=== PATIENT | female | born 1985 | race Caucasian/White ===

== ENCOUNTER 2018-12-05 13:21 | Emergency (ER) | payer MEDICAID ==
[~2018-12-05] VITALS: Ht 172.7 cm; Wt 58.5 kg
[2018-12-05 13:36] VITALS: BP 116/61; PULSE 78; RESP 18; Ht 172.7 cm; Wt 58.5 kg
[2018-12-05] MEDS ORDERED: SOD CHLORIDE 0.9% 500 ML IV STA (14:04)
[2018-12-05] MEDS ORDERED: KETOROLAC 15 MG INJ IV STA (14:04)
--- NOTE | 2018-12-05 14:07 | ERD ---
ER Documentation Chief Complaint Chief Complaint lower abd pain since 0930 am with nausea HPI 33-year-old female, previously healthy, presents to the emergency department, complaining of acute onset of severe lower abdominal pain, radiating to bilateral extremities, the pain lasted approximately 20 minutes and since then has significantly improved. The patient also reports nausea but denies dysuria, no fever or chills, no history of previous episodes. Currently the pain is 5/10. ROS All systems reviewed and are negative except as per history of present illness. Medications Home Meds Active Scripts Acetaminophen* (Tylenol*) 325 Mg Tablet, 2 TAB PO Q6 PRN for PAIN AND OR ELEVATED TEMP, #20 TAB Prov:DEBRA BROUSSARD MD 12/05/18 Ibuprofen* (Motrin*) 400 Mg Tab, 400 MG PO Q6H PRN for PAIN AND OR ELEVATED TEMP, #20 TAB Prov:DEBRA BROUSSARD MD 12/05/18 Allergies Allergies: Coded Allergies: No Known Allergy (Unverified , 12/05/18) FmHx Family History: No diabetes, No coronary disease Physical Exam Vitals Vital Signs Date Temp Pulse Resp B/P (MAP) Pulse Ox O2 O2 Flow FiO2 Time Delivery Rate 12/05/18 97.8 78 18 116/61 99 13:36 (79) Physical Exam Const: No acute distress Head: Atraumatic Eyes: Normal Conjunctiva ENT: Normal External Ears, Nose and Mouth. Neck: Full range of motion. No meningismus. Resp: Clear to auscultation bilaterally Cardio: Regular rate and rhythm, no murmurs Abd: Soft, non tender, non distended. Normal bowel sounds Skin: No petechiae or rashes Back: No midline or flank tenderness Ext: No cyanosis, or edema Neur: Awake and alert Psych: Normal Mood and Affect Result Diagram: 12/05/18 1419 12/05/18 1419 Results 24 hrs Laboratory Tests Test 12/05/18 14:19 12/05/18 14:24 White Blood Count 11.0 10^3/ul Red Blood Count 5.35 10^6/ul Hemoglobin 15.5 g/dl Hematocrit 47.2 % Mean Corpuscular Volume 88.2 fl Mean Corpuscular Hemoglobin 29.0 pg Mean Corpuscular Hemoglobin Concent 32.8 g/dl Red Cell Distribution Width 12.5 % Platelet Count 257 10^3/UL Mean Platelet Volume 11.2 fl Immature Granulocytes % 0.500 % Neutrophils % 72.8 % Lymphocytes % 20.9 % Monocytes % 4.8 % Eosinophils % 0.5 % Basophils % 0.5 % Nucleated Red Blood Cells % 0.0 /100WBC Immature Granulocytes # 0.060 10^3/ul Neutrophils # 8.0 10^3/ul Lymphocytes # 2.3 10^3/ul Monocytes # 0.5 10^3/ul Eosinophils # 0.1 10^3/ul Basophils # 0.1 10^3/ul Nucleated Red Blood Cells # 0.0 10^3/ul Urine Color YELLOW Urine Clarity SLIGHTLY CLOUDY Urine pH 5.0 Urine Specific Edwards 1.011 Urine Ketones NEGATIVE mg/dL Urine Nitrite NEGATIVE mg/dL Urine Bilirubin NEGATIVE mg/dL Urine Urobilinogen NEGATIVE mg/dL Urine Leukocyte Esterase NEGATIVE Fantasma/ul Urine Microscopic RBC 0 /HPF Urine Microscopic WBC 1 /HPF Urine Squamous Epithelial Cells FEW /HPF Urine Bacteria FEW /HPF Urine Mucus FEW /HPF Urine Hemoglobin NEGATIVE mg/dL Urine Glucose NEGATIVE mg/dL Urine Total Protein NEGATIVE mg/dl Sodium Level 142 mmol/L Potassium Level 4.3 mmol/L Chloride Level 104 mmol/L Carbon Dioxide Level 24 mmol/L Anion Gap 14 Blood Urea Nitrogen 17 mg/dl Creatinine 0.57 mg/dl Est Glomerular Filtrat Rate mL/min > 60 mL/min Glucose Level 90 mg/dl Calcium Level 10.0 mg/dl Total Bilirubin 0.5 mg/dl Direct Bilirubin 0.00 mg/dl Indirect Bilirubin 0.5 mg/dl Aspartate Amino Transf (AST/SGOT) 24 IU/L Alanine Aminotransferase (ALT/SGPT) 25 IU/L Alkaline Phosphatase 65 IU/L Total Protein 9.2 g/dl Albumin 5.1 g/dl Globulin 4.10 g/dl Albumin/Globulin Ratio 1.24 Lipase 111 U/L Serum HCG, Qualitative NEGATIVE POC Beta HCG, Qualitative NEGATIVE Current Medications Medications Dose Sig/Guillermo Start Time Status Last (Trade) Ordered Route PRN Stop Time Admin Dose Reason Admin Sodium 500 ml @ Q1H STAT 12/05/18 DC 12/05/18 Chloride 500 mls/hr IV 14:04 14:32 12/05/18 15:03 Ketorolac 15 mg ONCE STAT 12/05/18 DC 12/05/18 Tromethamine IV 14:04 14:32 (Toradol) 12/05/18 14:24 Patient: PHIL HERRERA : 1985 Age: 33 Sex: F [id number] DOS: 12/05/18 1404 Ordering MD: DEBRA BROUSSARD MD Location: [facility] [place] Room/Bed: PROCEDURE: CT abdomen and pelvis without contrast. CLINICAL INDICATION: Abdominal pain. TECHNIQUE: CT scan of the abdomen and pelvis without contrast was performed on a multi-slice CT scanner . Sagittal and coronal reformatted images were obtained from the axial source images. One or more of the following dose reduction techniques were used: - Automated exposure control. - Adjustment of the mA and/or kV according to patient size. - Use of iterative reconstruction technique. DICOM images are available DLP 349.16 mGycm. CTDIvol 6.4 mGy COMPARISON: 12/05/2018 FINDINGS: Fine detail of the soft tissues is limited secondary to the lack of IV contrast. Evaluation for enhancing lesions cannot be performed. Lower thorax:The lung bases are clear. Liver: There is uniform density of the liver with no gross focal lesion. Biliary: The gallbladder is unremarkable without surrounding inflammation. No biliary dilatation. Pancreas: Homogeneous density of the pancreas without visible focal lesion or cystic abnormality. There is no pancreatic ductal dilatation. Spleen: Unremarkable without enlargement or focal lesion. Adrenal Glands: The adrenal glands are within normal limits without mass. Urinary: The kidneys are symmetric in size bilaterally. There is a nonobstructing left upper pole 2 mm renal stone. No right-sided renal calculi are present. There are no visible ureteral stones. Portions of the distal ureters are obscured secondary to adjacent structures. There is no hydronephrosis. Mild bladder wall thickening is present. Gastrointestinal: There is a fecal filled colon.No evidence of bowel obstruction or inflammation. There is no appendicitis. Lymph nodes: There are no enlarged lymph nodes. Vascular: The aorta is unremarkable. Peritoneum/mesentery: There is mild free fluid within the lower pelvis. There is no free air. Reproductive organs: The pelvic organs are poorly visualized secondary to adjacent fluid. There is a hyperdense structure of the left adnexa that measures 3.2 cm possibly a hemorrhagic cyst or endometrioma. The uterus and right ovary are not well visualized. Musculoskeletal: There is no acute osseous abnormality. Other: None IMPRESSION: Free fluid is seen in the lower pelvis which is indeterminate and this obscures the fine detail of the pelvic structures. There is a hyperdense structure of the left adnexa measuring 3.2 cm possibly a left ovarian hemorrhagic cyst or endometrioma and this can be correlated with pelvic ultrasound. Mild wall thickening the bladder is seen which could represent cystitis and can be correlated with urinalysis. There is a nonobstructing left upper pole renal stone. There are no visible ureteral stones and there is no hydronephrosis. There is a fecal filled colon.No evidence of bowel obstruction or visible bowel inflammation. There is no appendicitis. RPTAT: AA .Kraig Landeros MD, MD Date Time Electronically viewed and signed by .Kraig Landeros MD, MD on 12/05/2018 15:16 Procedures/MDM Vital signs stable. Differential diagnosis include but not limited to: UTI, colitis, gastroenteritis, kidney stones, irritable bowel syndrome, inflammatory bowel syndrome, malabsorption syndrome, cholelithiasis, food intolerance, medication side effect, pancreatitis, diverticulitis, bowel obstruction. Physical examination and clinical presentation consistent most likely with pelvic pain, likely a small ovarian cyst rupture. Multiple examinations were done at bedside, the patient is a stable, pain has resolved. During the ED course the patient remained stable, no new complaints. The patient received treatment with IV fluids and IV medications presenting overall improvement of the symptoms. Results and clinical impression discussed with the patient who agrees with management. The patient is stable to be treated outpatient and will be discharged home; some side effects of prescribed medications (headache, rash, nausea, vomiting, diarrhea, drowsiness, habituation, bleeding, hypertension, interactions with other medications) were reviewed. The patient was informed that the evaluation in the emergency department has been done to rule out an acute emergency, therefore, chronic conditions like malignancy or other diseases have not been evaluated; therefore, the patient was instructed to follow up with the primary care provider in the next 48h. If symptoms persist, worsen or new symptoms develop, then patient should return to the ED immediately. Instructions explained and given directly by me to the patient with ac knowledgment and demonstrated understanding. Disclaimer: Inadvertent spelling and grammatical errors are likely due to EHR/dictation software use and do not reflect on the overall quality of patient care. Also, please note that the electronic time recorded on this note does not necessarily reflect the actual time of the patient encounter. Departure Diagnosis: Primary Impression: Pelvic pain Additional Impression: Hemorrhagic ovarian cyst Condition: Stable Additional Instructions: Thank you very much for allowing us to participate in your care. Your health and safety is our top priority at [facility]. The evaluation in the emergency department has been done to rule out an acute emergency. Chronic, [id number] conditions may have not been evaluated; therefore, you need to follow up with a primary care provider in the next 48h. If symptoms persist, worsen or new symptoms develop, then patient should return to the ED immediately. Call your primary care doctor TOMORROW for an appointment during the next 2-4 days and bring all the information provided. Have prescriptions filled and follow precisely the directions on the label. If the symptoms get worse and your provider is unavailable, return to the Emergency Department immediately. DEBRA BROUSSARD MD Dec 05, 2018 14:07
[2018-12-05] MEDS ORDERED: ACET325T33 PO (15:44)
[2018-12-05] MEDS ORDERED: IBUP-1561 PO (15:44)
== END 2018-12-05 17:51 | disposition home or self-care (01) ==
LOC: FTE 13:21
DX: N83.202 Unspecified ovarian cyst, left side (principal); R10.2 Pelvic and perineal pain
CPT/HCPCS: 36415; 74176; 80053; 81001; 81003; 83690; 84703; 85025; 96361; 96374; J1885; J7040; Z7502; 81025